=== PATIENT | male | born 1950 | race Caucasian/White ===

== ENCOUNTER 2023-12-13 15:50 | Inpatient (IN) | payer MEDICARE, OTHER ==
[~2023-12-13] VITALS: Ht 175.3 cm; Wt 99.6 kg
[2023-12-13 16:20] VITALS: PULSE 101; RESP 18; O2SAT 94
[2023-12-13] MEDS: SODIUM CHLORIDE 0.9% 1,000 ML IV ONE (16:40)
[2023-12-13 16:44] LABS: Hemoglobin 15.3 g/dL (13.5-17.5)
[2023-12-13 16:50] LABS: Mean Corpuscular Hgb Conc. 34.8 g/dL (32.0-36.0); Mean Corpuscular Volume 86.2 fL (80.0-100.0); Platelet Count (auto) 198 10^3/uL (140-450); Red Blood Cells 5.11 10^6/uL (4.5-5.90); Red Cell Distribution Width 12.4 % (11.8-14.3); White Blood Cell 2.7 10^3/uL (4.4-10.8)
[2023-12-13] MEDS: ASPirin 81 mg TAB PO ONE (16:52)
[2023-12-13] MEDS: ACETAMINOPHEN 325 MG TAB PO ONE (16:55)
[2023-12-13 16:56] LABS: Alanine Aminotransferase 44 U/L (7-40); Albumin 4.4 g/dL (3.2-4.8); Alkaline Phosphatase 62 U/L (46-116); Anion Gap 10 (5-15); Aspartate Aminotransferase 31 U/L (13-40); BUN/Creatinine Ratio 8.2 (10.0-20.0); Basophils % (manual) 0 (0.0-2.0); Bilirubin, Total 1.3 mg/dL (0.2-1.0); Blast Cells 0; Blood Urea Nitrogen 8 mg/dL (9-23); Carbon Dioxide 26 mmol/L (20-31); Chloride 102 mmol/L (98-107); Eosinophils % (manual) 0 (0-7); Glucose 144 mg/dL (74-106); Metamyelocytes % 0; Myelocytes % 0; Potassium 3.5 mmol/L (3.5-5.1); Promyelocytes % 0; Reactive Lymphocytes 0; Sodium 138 mmol/L (136-145); Total Protein 6.8 g/dL (5.7-8.2)
[2023-12-13 17:02] LABS: INR 1.08 (0.9-1.15); Partial Thromboplastin Time 25.6 SEC (24.5-34.5); Prothrombin Time 11.4 sec (9.3-11.8)
[2023-12-13 17:19] LABS: Anisocytosis Slight; Band Neutrophils % (manual) 3; Large Platelets FEW; Lymphocytes % (manual) 69 (10.0-50.0); Monocytes % (manual) 20 (0-12); Platelet Estimate Adequate
[2023-12-13] MEDS: METOPROLOL TARTRATE 1MG/1ML-5ML VIAL IV ONE (17:30)
[2023-12-13] MEDS: IOHEXOL 350 MG/ML 100ML IJ ONE (18:52)
[2023-12-13 19:19] LABS: Erythrocyte Sedimentation Rate 23 mm/hr (0-20)
[2023-12-13 19:26] VITALS: PULSE 88; RESP 15; O2SAT 93
[2023-12-13 21:30] LABS: COVID19 ANTIGEN SOFIA FIA NEGATIVE (NEGATIVE); Rapid Influenza A Negative (Negative); Rapid Influenza B Negative (Negative)
[2023-12-13] MEDS: MORPHINE SULFATE 4 MG/ML SYR/VIAL IV ONE (22:34)
[2023-12-13] MEDS: traZODone HCL 50 MG TAB PO ONE (22:34)
[2023-12-13] MEDS ORDERED: NITROGLYCERIN 0.4 MG SL TAB SL PRN (23:45)
[2023-12-13] MEDS ORDERED: MORPHINE SULFATE INJ 2 MG/ml SYRG IV PRN (23:45)
[2023-12-14] VITALS (10 sets, daily range): BP systolic 101–160; BP diastolic 49–82; PULSE 60–98; RESP 16–20; TEMP 98.1–100.3; O2SAT 92–99
[2023-12-14] MEDS ORDERED: hydrALAZINE HCL 20 MG/ML VL IV PRN
[2023-12-14] MEDS: ACETAMINOPHEN 325 MG TAB PO PRN (00:56)
[2023-12-14] MEDS ORDERED: ONDANSETRON HCL 4 MG/2 ML VIAL IV PRN (05:30)
[2023-12-14] MEDS: SODIUM CHLORIDE 0.9% 1,000 ML IV SCH (06:00)
[2023-12-14 08:58] LABS: Urine Bacteria None Seen /hpf (None Seen)
[2023-12-14] MEDS ORDERED: cefTRIAXone 1GM/50ML D5W 50 ML IV SCH (09:00)
[2023-12-14 09:17] LABS: Amphetamine Screen, Urine Neg (NEGATIVE); Barbiturate Scree,Urine Neg (NEGATIVE); Benzodiazephine Screen, Urine Neg (NEGATIVE); Cocaine Screen, Urine Neg (NEGATIVE)
[2023-12-14 09:18] LABS: Cannabinoid Screen, Urine Neg (NEGATIVE); Opiate Scree,Urine Pos (NEGATIVE); Phencyclidine Screen, Urine Neg (NEGATIVE)
[2023-12-14 09:27] LABS: Urine Blood Negative /uL (Negative); Urine Clarity Clear (Clear); Urine Color Yellow (Yellow); Urine Protein, UAD TRACE (Negative); Urine Urobilinogen Normal (Negative); Urine WBC 1 /hpf (0 - 3)
[2023-12-14] MEDS ORDERED: VANCOMYCIN PER PHARMACY 0 MG IV SCH (10:00)
[2023-12-14] MEDS: ENOXAPARIN SOD 40 MG/0.4 ML SYRINGE SC SCH (10:21)
[2023-12-14] MEDS: PANTOPRAZOLE 40 MG/10 ML VIAL INJ IV SCH (10:21)
[2023-12-14 11:05] LABS: Hematocrit 38.7 % (41.0-53.0); Hemoglobin 13.8 g/dL (13.5-17.5); Mean Corpuscular Hemoglobin 30.8 pg (28.0-32.0); Mean Corpuscular Hgb Conc. 35.6 g/dL (32.0-36.0); Mean Corpuscular Volume 86.5 fL (80.0-100.0); Platelet Count (auto) 181 10^3/uL (140-450); Red Blood Cells 4.47 10^6/uL (4.5-5.90); Red Cell Distribution Width 12.5 % (11.8-14.3); White Blood Cell 2.8 10^3/uL (4.4-10.8)
[2023-12-14 11:16] LABS: Alanine Aminotransferase 31 U/L (7-40); Albumin 3.6 g/dL (3.2-4.8); Alkaline Phosphatase 51 U/L (46-116); Anion Gap 7 (5-15); Aspartate Aminotransferase 22 U/L (13-40); BUN/Creatinine Ratio 8.4 (10.0-20.0); Blood Urea Nitrogen 7 mg/dL (9-23); Calcium 8.7 mg/dL (8.7-10.4); Carbon Dioxide 28 mmol/L (20-31); Chloride 104 mmol/L (98-107); Glucose 130 mg/dL (74-106); LDL Cholesterol 80 mg/dL (< 100); Potassium 3.1 mmol/L (3.5-5.1); Sodium 139 mmol/L (136-145); Triglycerides 158 mg/dL (< 150)
[2023-12-14 11:18] LABS: Basophils % (manual) 0 (0.0-2.0); Blast Cells 0; Cholesterol 131 mg/dL (< 200); Eosinophils % (manual) 0 (0-7); HDL Cholesterol 27 mg/dL (40-59); Metamyelocytes % 0; Promyelocytes % 0; Reactive Lymphocytes 0
[2023-12-14 11:36] LABS: Band Neutrophils % (manual) 5; Lymphocytes % (manual) 51 (10.0-50.0); Monocytes % (manual) 26 (0-12); Myelocytes % 1
[2023-12-14 11:37] LABS: Platelet Estimate Adequate
[2023-12-14] MEDS ORDERED: PIPERACILLIN-TAZOB 3.375GM 100 ML IV SCH (12:00)
[2023-12-14] MEDS: VANCOMYCIN 1GM/250ML 250 ML IV SCH (13:32)
[2023-12-14] MEDS: VANCOMYCIN 1 GM/250 ML IV ONE (13:33)
[2023-12-14] MEDS: CEFEPIME 2GM/50ML NS 50 ML IV SCH (16:22)
[2023-12-14] MEDS: amLODIPine BESYLATE 5 MG TAB PO ONE (16:22)
[2023-12-14] MEDS: ASPirin 81 mg TAB PO ONE (16:36)
[2023-12-14] MEDS: TAMSULOSIN HYDROCHLORIDE 0.4 MG CAP PO SCH (18:18)
[2023-12-14] MEDS: POTASSIUM CHL 20MEQ/100ML 100 ML IV SCH (20:54)
[2023-12-14] MEDS: traZODone HCL 50 MG TAB PO SCH (21:57)
[2023-12-14] MEDS: ATORVASTATIN 20 MG TAB PO SCH (21:57)
[2023-12-15] VITALS (7 sets, daily range): BP systolic 112–153; BP diastolic 46–81; PULSE 84–98; RESP 16–23; TEMP 97.6–98.7; O2SAT 91–95
[2023-12-15] MEDS: VANCOMYCIN 1.25GM/250ML 250 ML IV SCH (01:56)
[2023-12-15 08:56] LABS: Hematocrit 38.9 % (41.0-53.0); Hemoglobin 13.5 g/dL (13.5-17.5); Mean Corpuscular Hemoglobin 30.3 pg (28.0-32.0); Mean Corpuscular Hgb Conc. 34.8 g/dL (32.0-36.0); Platelet Count (auto) 230 10^3/uL (140-450); Red Blood Cells 4.47 10^6/uL (4.5-5.90); Red Cell Distribution Width 12.5 % (11.8-14.3); White Blood Cell 4.1 10^3/uL (4.4-10.8)
[2023-12-15 09:01] LABS: Basophils % (manual) 0 (0.0-2.0); Blast Cells 0; Eosinophils % (manual) 0 (0-7); Myelocytes % 0; Promyelocytes % 0; Reactive Lymphocytes 0
[2023-12-15 09:02] LABS: Anion Gap 9 (5-15); Calcium 8.7 mg/dL (8.7-10.4); Carbon Dioxide 25 mmol/L (20-31); Chloride 107 mmol/L (98-107); Potassium 3.1 mmol/L (3.5-5.1); Sodium 141 mmol/L (136-145)
[2023-12-15 09:08] LABS: BUN/Creatinine Ratio 7.9 (10.0-20.0); Blood Urea Nitrogen 7 mg/dL (9-23); Glucose 141 mg/dL (74-106)
[2023-12-15 09:55] LABS: Band Neutrophils % (manual) 6; Lymphocytes % (manual) 25 (10.0-50.0); Metamyelocytes % 2; Monocytes % (manual) 21 (0-12)
[2023-12-15 09:56] LABS: Platelet Estimate Adequate
[2023-12-15] MEDS: ASPirin 81 mg TAB PO SCH (10:03)
[2023-12-15] MEDS: amLODIPine BESYLATE 5 MG TAB PO SCH (10:04)
[2023-12-15 10:41] LABS: Hepatitis B Surface Antigen Negative (Negative)
[2023-12-15 11:02] LABS: Hepatitis C Antibody Negative (Negative)
[2023-12-15] MEDS: POTASSIUM CHL 20MEQ/100ML 100 ML IV SCH (12:26)
[2023-12-15] MEDS: POTASSIUM CHL 20MEQ/100ML 100 ML IV ONE (18:05)
[2023-12-16 05:00] VITALS: BP 128/49; PULSE 90; RESP 17; TEMP 98.1; O2SAT 94
[2023-12-16] MEDS ORDERED: LEVO750T40 PO (07:35)
[2023-12-16] MEDS ORDERED: METR-344 PO (07:35)
[2023-12-16 07:49] LABS: Chloride 108 mmol/L (98-107); Hematocrit 38.8 % (41.0-53.0); Hemoglobin 13.5 g/dL (13.5-17.5); Mean Corpuscular Hemoglobin 30.3 pg (28.0-32.0); Mean Corpuscular Hgb Conc. 34.9 g/dL (32.0-36.0); Mean Corpuscular Volume 86.9 fL (80.0-100.0); Platelet Count (auto) 264 10^3/uL (140-450); Potassium 3.6 mmol/L (3.5-5.1); Red Blood Cells 4.46 10^6/uL (4.5-5.90); Red Cell Distribution Width 12.5 % (11.8-14.3); Sodium 142 mmol/L (136-145); White Blood Cell 7.4 10^3/uL (4.4-10.8)
[2023-12-16 07:50] LABS: Anion Gap 9 (5-15); Carbon Dioxide 25 mmol/L (20-31)
[2023-12-16 07:51] LABS: Calcium 8.6 mg/dL (8.7-10.4)
[2023-12-16 07:55] LABS: Glucose 123 mg/dL (74-106)
[2023-12-16 07:56] LABS: BUN/Creatinine Ratio 5.1 (10.0-20.0); Basophils % (manual) 0 (0.0-2.0); Blast Cells 0; Blood Urea Nitrogen 5 mg/dL (9-23); Eosinophils % (manual) 0 (0-7); Promyelocytes % 0; Reactive Lymphocytes 0
[2023-12-16 08:42] LABS: Band Neutrophils % (manual) 16; Lymphocytes % (manual) 39 (10.0-50.0); Metamyelocytes % 1; Monocytes % (manual) 21 (0-12); Myelocytes % 4; Platelet Estimate Adequate
[2023-12-16 09:00] VITALS: BP 134/68; PULSE 83; RESP 16; TEMP 98.3; O2SAT 95
[2023-12-16 11:36] VITALS: BP 134/68; PULSE 87; TEMP 36.8
[2023-12-16 13:00] VITALS: BP 129/68; PULSE 83; RESP 16; TEMP 98; O2SAT 98
== END 2023-12-16 12:40 | disposition home or self-care (01) | DRG 872 ==
LOC: ER 15:56 → TELE 23:44 → TELE-CENTR 12-14 02:25 → CENTRAL 12-16 04:44
PROVIDERS: ADMIT Internal Medicine; ATTEND Internal Medicine
DX: A41.9 Sepsis, unspecified organism (principal); C85.90 Non-Hodgkin lymphoma, unspecified, unspecified site; K65.4 Sclerosing mesenteritis; I20.0 Unstable angina; N30.00 Acute cystitis without hematuria; N40.1 Benign prostatic hyperplasia with lower urinary tract symptoms; K40.90 Unilateral inguinal hernia, without obstruction or gangrene, not specified as recurrent; I10 Essential (primary) hypertension; Z20.822 Contact with and (suspected) exposure to COVID-19; E87.6 Hypokalemia; E66.9 Obesity, unspecified; R50.81 Fever presenting with conditions classified elsewhere; Z85.820 Personal history of malignant melanoma of skin; Z68.31 Body mass index [BMI] 31.0-31.9, adult
CPT/HCPCS: 36415; 71045; 71275; 74176; 80048; 80053; 80061; 80202; 80307; 81001; 82270; 83036; 83880; 84443; 84484; 85007; 85027; 85048; 85379; 85610; 85652; 85730; 86141; 86803; 87040; 87045; 87086; 87340; 87426; 87427; 87493; 87804; 93005; 93306; 96374; 96375; 99291; G0378; J0692; J2470; J3480